=== PATIENT | female | born 1965 | race Caucasian/White ===

== ENCOUNTER 2018-08-08 08:00 | Day surgery (SDC) | payer OTHER ==
[2018-08-07 15:23] VITALS: BMI 22.1
[2018-08-08] MEDS ORDERED: ONDANSETRON 4 MG/2 ML VIAL IVPUSH PRN (09:47)
[2018-08-08] MEDS ORDERED: oxyCODONE HCL 5 MG TABLET PO PRN ×2 (09:47)
[2018-08-08] MEDS ORDERED: LACTATED RINGERS SOLUTION 1,000 ML IV SCH (10:00)
[2018-08-08] MEDS ORDERED: ceFAZolin SODIUM 1 GM VIAL ONE ×2 (10:15→10:45)
[2018-08-08] MEDS ORDERED: GENTAMICIN SO4 80 MG/2 ML VIAL ONE (10:15)
[2018-08-08] MEDS ORDERED: MIDAZOLAM HCL 2 MG/2 ML SINGLE DOSE VIAL ONE (10:16)
[2018-08-08] MEDS ORDERED: PROPOFOL 20 ML ONE ×2 (10:16→12:43)
[2018-08-08] MEDS ORDERED: ceFAZolin SODIUM 1 GM VIAL IVPB ONE (10:38)
[2018-08-08] MEDS ORDERED: SODIUM CHLORIDE 0.9% P/F 10 ML VIAL IJ ONE (10:45)
[2018-08-08] MEDS ORDERED: KETOROLAC TROMETHAMINE 30 MG/1 ML VIAL ONE (10:45)
[2018-08-08] MEDS ORDERED: LIDOCAINE HCL/PF 2% SDV 5ML VIAL ONE (10:45)
[2018-08-08] MEDS ORDERED: ePHEDrine SULFATE 50 MG/1 ML AMPULE ONE (10:53)
[2018-08-08] MEDS ORDERED: LIDOCAINE 1%/EPI 1:100000 (50 ML MULTI DOSE VIAL) NR ONE (10:58)
[2018-08-08] MEDS ORDERED: BUPIVACAINE LIPOSOME/PF (EXPAREL) 266 MG/20 ML VIAL ONE (11:25)
[2018-08-08] MEDS ORDERED: BUPIVACAINE LIPOSOME/PF (EXPAREL) 266 MG/20 ML VIAL NR ONE (11:30)
[2018-08-08] MEDS ORDERED: ACETAMINOPHEN 1000 MG/100 ML VIAL (NON FORMULARY) IVPB ONE ×2 (11:38→13:42)
[2018-08-08] MEDS ORDERED: GLYCOPYRROLATE 0.2 MG/1 ML VIAL ONE (12:30)
--- NOTE | 2018-08-08 13:18 | OP ---
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 Ruptured breast implant right Operation: Bilateral breast reconstruction with other technique,Bilateral subcutaneous tissue. Bilateral capsulectomy removal and replacement of both implants Findings: Ruptured right breast implant Upper pole tear Implants: Bilateral silicone breast Surgeon: Mario Dee Anesthesia: General Specimens Removed: Bilateral implants. Bilateral capsules Estimated Blood Loss (mls): 20
[2018-08-08] MEDS ORDERED: ACETAMINOPHEN INJECTION 100 ML IVPB ONE (13:39)
[2018-08-08 15:39] VITALS: BP 103/65; PULSE 85; TEMP 98.3
--- NOTE | 2018-08-11 08:43 | OP ---
DATE OF OPERATION: 08/08/2018 SURGEON: Larry Dee MD PREOPERATIVE DIAGNOSES: 1. Bilateral acquired chest wall deformity status post bilateral mastectomy. 2. Mechanical complication of bilateral breast reconstruction. 3. Ruptured breast implant per Radiology. POSTOPERATIVE DIAGNOSES: 1. Bilateral acquired chest wall deformity status post bilateral mastectomy. 2. Mechanical complication of bilateral breast reconstruction. 3. Ruptured breast implant per Radiology. OPERATIVE PROCEDURE: 1. Right breast reconstruction utilizing other technique. 2. Left breast reconstruction utilizing other technique. 3. Right breast capsulectomy, removal of ruptured breast implant and replacement. 3. Left breast capsulectomy, removal of implant and replacement. OPERATIVE INDICATION: The patient is a 53-year-old female who underwent bilateral mastectomy for breast cancer approximately 10 or 11 years ago. The patient now presents with bilateral capsular contracture and rupture of breast implant. The implants are malpositioned in a superior position and are firm with acquired chest wall deformity post mastectomy for cancer. The risks and benefits of surgical versus nonsurgical alternatives as well as the material complications of the procedure were described to the patient on multiple occasions preoperatively including today in the holding area where she was marked in the standing position with outline of the incisions for reconstruction with other technique and implant replacement. The patient presented with a large defect in the lower pole of each breast and required reconstructive procedures as above. PROCEDURE IN DETAIL: The patient was taken to the operating room, and after induction of general anesthesia in the supine position, both arms were extended and padded. Venodyne boots were placed. The entire chest wall, abdomen, flank area was prepped with ChloraPrep solution over the entire extent as usual for breast reconstruction. At this point, after placement of sterile drapes and time-out, attention was turned to the mastectomy scars. The patient had previous circumareolar, vertical, and inframammary incisions and scars. The lower incision was then injected with 1% local lidocaine anesthesia with 1:100,000 epinephrine as well as the area in the lower abdomen for harvest of reconstructed tissue on the flank. At this point, after allowing topical anesthesia and hemostasis, an incision was made in the left inframammary fold down through the skin into the subcutaneous tissue through the subcutaneous tissue using the electrocautery and optical magnification of 2.5 power. The capsule was then encountered and then opened. The left breast implant, which was a textured Sientra Smooth Round base 450-mL volume implant, was then removed and sent for pathologic diagnosis. Because of the textured device, the capsulectomy was performed. The capsule was then removed on the inferior pole, and all aspects of the capsule, which were visualized in this area were also removed and sent for pathologic diagnosis. At this point, copious irrigation of the wound was performed throughout the pocket with triple antibiotic solution as well as saline approximately 500 mL volume. The implant was then replaced with a slightly smaller implant as per the patient's desire. A Sientra style 107 High Profile Round Smooth silicone gel implant of 385 mL volume was placed into the left breast pocket. At this point, attention was turned to the lower abdominal incisions. These were made down through the skin to the subcutaneous tissues, through the subcutaneous tissue, down to the underlying external oblique fascia. Tissue was then harvested from the lateral portions of both flanks in the usual fashion for reconstructive procedure with other technique and then the tissue was transferred to the back table and prepared for reconstruction. This tissue was then transferred to the left breast in the superior, medial, central, and inferior portions of the left breast as well as the lower area below the incision on the abdominal area. Once this was accomplished, the wound was closed using 2-0 Vicryl sutures on the deep tissue and deep fascia, 3-0 PDS in a deep dermal fashion, and a running subcuticular suture with 3-0 V-Lock was placed into the skin. Once this breast was closed, attention was turned to the opposite right breast. Because of the previous diagnosis of ruptured implant, which the patient reported she felt a year ago, all wounds were protected for this area. Incision was then made using optical magnification of 2.5 powered down through the mastectomy scar through the subcutaneous tissue and down to the capsule itself. Upon opening the capsule, the implant appeared to be ruptured. Silicone was present on the external surface of the implant itself, and upon removal of the implant, a large tear in the upper pole of the implant was seen, which had been previously made by patient activity. This implant was removed. Photo was taken and sent for pathologic diagnosis. This also was a Sientra round base textured device, and because of that, a capsulectomy was performed. The capsule was then excised and sent for pathologic diagnosis, and open capsulotomy was performed superiorly to accept the new implant. At this point, the same inpatient was placed back into the pocket after aching hemostasis throughout the pocket in meticulous fashion. Copious irrigation of the wound with saline cleansing solution in order to remove all silicone, which was wiped from the pocket itself and capsule itself. After cleansing the pocket, the new implant was placed. The same Sientra 385-mL volume High Profile Smooth Round implant was placed into the right breast pocket and then similar closure was accomplished with 2-0 Vicryl suture, 3-0 PDS in the deep dermis, and a subcuticular suture. The same volume of tissue for reconstruction was transferred to the right breast superiorly, medially, and inferiorly to fill out the lower pole of the breast because of the mastectomy defect. All wounds were dressed sterilely with Dermabond, Steri-Strips, and a compressive dressing. She tolerated the procedure well. She was injected with Exparel dilute solution at the end of the procedure into the deep musculature in all areas for comfort and anesthesia. She was extubated and transferred to the recovery room in satisfactory condition in a surgery bra and tolerated the procedure well. LARRY DEE M.D. [id number]
--- NOTE | 2018-08-12 15:14 | PATH ---
Surgical Pathology Report Patient Name: OSWALDO URENA [facility]. Rec. #: [id number] /Age/Gender: 1965 (Age: 53) / F Account: [id number] Location: [facility] SUR[facility] Taken: 08/08/2018 Received: 08/11/2018 Reported: 08/12/2018 Physicians: Mario Dee Specimen(s) Received A: LEFT BREAST CAPSULE B: RIGHT BREAST CAPSULE C: LEFT BREAST IMPLANT D: RIGHT BREAST IMPLANT Clinical History Breast cancer Final Diagnosis A. BREAST CAPSULE, LEFT, EXCISION: BENIGN DENSE FIBROUS TISSUE CONSISTENT WITH BREAST CAPSULE, FIBROADIPOSE TISSUE, AND SCANT SKELETAL MUSCLE. B. BREAST CAPSULE, RIGHT, EXCISION: BENIGN DENSE FIBROUS TISSUE CONSISTENT WITH BREAST CAPSULE AND FIBROADIPOSE TISSUE WITH MILD CHRONIC INFLAMMATION AND REACTIVE CHANGES. C. BREAST IMPLANT, LEFT, REMOVAL: BREAST IMPLANT. MACROSCOPIC DIAGNOSIS. D. BREAST IMPLANT, RIGHT, REMOVAL: BREAST IMPLANT. MACROSCOPIC DIAGNOSIS. Electronically Signed Maxine Rowell M.D. Gross Description A. Received in formalin labeled "left breast capsule," is a 6.3 x 4.3 x 0.5 cm aggregate of cabral, firm portions of fibrous tissue, consistent with portions of a fibrous capsule. Sectioning reveals focal thickened areas. No discrete masses are identified. [place] sections are submitted in one cassette. B. Received in formalin labeled "right breast capsule," is a 6.8 x 4.3 x 0.5 cm aggregate of multiple cabral, irregular portion of firm fibrous capsule. No discrete masses are identified. [place] sections are submitted in one cassette. C. Received fresh labeled "left breast implant," is a 13 cm in diameter x 3.5 cm in depth cabral, rubbery, intact breast implant. No soft tissue is present. No sections are submitted, gross only. D. Received fresh labeled "right breast implant," is a 13 cm in diameter x 4 cm in depth cabral, rubbery, focally disrupted breast implant. There is silicon material leaking out of the breast implant and into the container. No soft tissue is present. No sections are submitted, gross only. DL/08/11/2018 saudi08/11/2018
== END 2018-08-08 15:48 | disposition home or self-care (01) ==
LOC: JASU-SURG 08:00
PROVIDERS: ATTEND Plastic Surgery
PROC: 0HWT0JZ Revision of Synthetic Substitute in Right Breast, Open Approach (ICD-10-PCS; 2018-08-08)
PROC: 0HWU0JZ Revision of Synthetic Substitute in Left Breast, Open Approach (ICD-10-PCS; principal; 2018-08-08 09:30)
DX: T85.898A Other specified complication of other internal prosthetic devices, implants and grafts, initial encounter (principal); M95.4 Acquired deformity of chest and rib; Z90.13 Acquired absence of bilateral breasts and nipples
CPT/HCPCS: 88300-TC; 88304-TC; 94760; J0131

== ENCOUNTER 2018-08-08 18:29 | Emergency (ER) | payer OTHER ==
--- NOTE | 2018-08-08 18:35 | PDOC ---
Rapid Medical Evaluation Time Seen by Provider: 08/08/18 18:33 Medical Evaluation: Allergies Allergy/AdvReac Type Severity Reaction Status Date / Time Penicillins Allergy Rash Verified 08/08/18 08:36 Sulfa (Sulfonamide Allergy Verified 08/08/18 08:36 Antibiotics) 08/08/18 18:33 I have performed a brief in-person evaluation of this patient. The patient presents with a chief complaint of:POD #0 B breast implant exchange from prior rupture hx of breast Ca bleeding through surgical bandage Pertinent physical exam findings: scant blood on post op bra I have ordered the following:nothing The patient will proceed to the ED for further evaluation. Discharge Disposition - Diagnosis Bleeding from breast - Referrals - Patient Instructions - Post Discharge Activity
[2018-08-08 19:04] VITALS: BMI 22.1
--- NOTE | 2018-08-08 19:25 | PDOC ---
Attending Attestation - HPI HPI: 08/08/18 21:02 "The patient is a 53-year-old female with past medical history significant for Breast CA s/p B/L mastectomy (by Dr. Dee), with reconstruction complicated by rupture of the right breast implant, s/p B/L breast reconstruction with b/l subcutaneous tissue, capsulectomy removal and replacement of both implants (by Dr. Dee) presents to the emergency department with L. breast pain with swelling. The patient reports she underwent surgery from 10:45 to 1-1:30 pm today and was discharged at 3:30. The patient states about an hour after discharge she noticed clear fluid discharge from the L. breast associated with swelling and pain. The patient denies bloody discharge or taking any pain medication. The patient residents in [place] and came up for the surgery and is leaving on Saturday. Allergies: Sulfa and penicillin Plastic Surgeon: Dr. Dee. " - Medical Decision Making 08/08/18 21:03 Documentation prepared by Candace Parnell, acting as medical assembly for Rogers Lomeli MD. <Candace Parnell - Last Filed: 08/08/18 21:01> - Resident Resident Name: Cintia Pennington - ED Attending Attestation I have performed the following: I have examined & evaluated the patient, The case was reviewed & discussed with the resident, I agree w/resident's findings & plan, Exceptions are as noted - Physicial Exam PE: 08/08/18 19:32 GENERAL: The patient is awake, alert, and fully oriented, Nontoxic - in no acute distress. CHEST: Swelling/ecchymosis on inferior aspect of breast, L breast is ~50% larger than the left and tense to touch, no acitve bleeding, moderately ttp - Medical Decision Making 08/08/18 19:21 53y F hx of breast ca sp mastetctomy cb ruptured implant, sp revision surgery today notes increased swelling and pain from the left breast after the surgery today. 08/08/18 19:33 ddx - post op swelling vs hematoma will dw dr. garcia will give percocet for pain 08/08/18 21:[address] garcia by dr. pennington also sent images to surgeon via text with permission of patient at resquest of surgeon feels tihs is not a hemaotma and likely post op swelling continue supportive care at home with fu retur nprecautions were discussed <Rogers Lomeli - Last Filed: 08/08/18 21:23>
--- NOTE | 2018-08-08 19:46 | PDOC ---
History of Present Illness - General Chief Complaint: Pain Stated Complaint: , BLEEDING, PAIN IN R ARM Time Seen by Provider: 08/08/18 18:33 - History of Present Illness Initial Comments: Juhi Alcazar is a 53yo woman who presents with increasing right breast pain and swelling POD#0 s/p bilateral breast implant replacement and repair of a ruptured R implant. Ms Alcazar states that she had surgery earlier today and left the hospital around 3pm. Approximately 2-3 hours later, she noted significantly increased pain and swelling in the R breast only. She states that the pain is constant, throbbing, and non-radiating. Movement or directly touching the breast, especially on the lower lateral breast, increases the pain. She also had some bright red bleeding from the incision on the inferior R breast that stained the gauze dressing and surgical bra. She attempted to contact her surgeon, Dr Dee, and presented to the ED when she could not reach him. Ms Alcazar states that she has not yet taken any pain medication. As she had very little pain when leaving the hospital , she did not pecan picker the prescription of Percocet that was prescribed. She states that her current pain is significantly more severe that for her initial breast reconstruction. Per the post-op note, the right breast procedure was more involved than the left , with removal of the ruptured implant and capsule contracture. Past History - Past Medical History Allergies/Adverse Reactions: Allergies Allergy/AdvReac Type Severity Reaction Status Date / Time Penicillins Allergy Rash Verified 08/08/18 08:36 Sulfa (Sulfonamide Allergy Verified 08/08/18 08:36 Antibiotics) Home Medications: Ambulatory Orders Dextroamphetamine/Amphetamine [Adderall 10 mg Tablet] 10 mg PO PRN PRN 08/07/18 Escitalopram Oxalate [Lexapro -] 30 mg PO DAILY 08/07/18 Anemia: Yes (1 yr ago) Asthma: No Cancer: Yes (Melanoma Both Feet-mohs procedure 2009; breast) Cardiac Disorders: Yes (Murmur as a child) CVA: No COPD: No CHF: No Dementia: No Diabetes: No GI Disorders: Yes (Spastic Colon) Disorders: No HTN: No Hypercholesterolemia: No Liver Disease: No Seizures: No Thyroid Disease: No - Surgical History Abdominal Surgery: No Appendectomy: No Cardiac Surgery: No Cholecystectomy: No Lung Surgery: No (breast reduction) Neurologic Surgery: No Orthopedic Surgery: No - Suicide/Smoking/Psychosocial Hx Smoking History: Unknown if ever smoked Have you smoked in the past 12 months: Yes If you are a former smoker, when did you quit?: 11 yrs ago 'Breaking Loose' booklet given: 03/26/12 Hx Alcohol Use: Yes (every other day-a few beers) Drug/Substance Use Hx: No Substance Use Type: Alcohol Hx Substance Use Treatment: No Review of Systems - Review of Systems Comments:: General: No fevers, no chills, no weight or appetite change, no malaise HEENT: No changes in vision, no changes in hearing, no congestion, no sore throat CV: No chest pain, no palpitations, no LE edema Pulm: No SOB, no cough, no wheezing GI: No nausea or vomiting, no change in bowel habits, no melena : No frequency, no urgency, no dysuria Musc: No back pain, no joint swelling, no recent injury Skin: No rash, no lesions, no erythema. See HPI, post-op pain and swelling in R breast Endo: No excessive thirst, no heat/cold intolerance Heme: No unusual bruising or bleeding, no swollen glands Neuro: No syncope, no numbness/tingling, no focal weakness Vasc: No claudication Psych: No recent change in mood, no SI or HI *Physical Exam - Vital Signs Last Vital Signs Temp Pulse Resp BP Pulse Ox 98.2 F 92 H 18 110/70 96 08/08/18 18:46 08/08/18 18:46 08/08/18 18:46 08/08/18 18:46 08/08/18 18:46 - Physical Exam Comments: General: Comfortable, no acute distress HEENT: PERRL, EOMI, MMM, voice normal, normal neck ROM Cards: RRR Pulm: Comfortable on room air Breast: s/p b/l breast implantation. L breast w/ minimal swelling, steri strips in place Abd: Soft, nontender, nondistended Ext: No LE edema, FARTUN hose in place. ROM intact. Strength equal bilaterally Vasc: Extremities WWP Skin: Normal color, no rashes or lesions Neuro: A&Ox3, CN grossly intact, normal speech, motor/sensory grossly intact and symmetric Psych: Upset, anxious Moderate Sedation - Procedure Monitoring Vital Signs: Procedure Monitoring Vital Signs Temperature 98.2 F 08/08/18 18:46 Pulse Rate 92 H 08/08/18 18:46 Respiratory Rate 18 08/08/18 18:46 Blood Pressure 110/70 08/08/18 18:46 O2 Sat by Pulse Oximetry (%) 96 08/08/18 18:46 ED Treatment Course - Medications Given in the ED: ED Medications Discontinued Medications Generic Name Dose Route Start Last Admin Trade Name Freq PRN Reason Stop Dose Admin Oxycodone/Acetaminophen 2 combo 08/08/18 19:21 08/08/18 19:38 Percocet 5/325 - PO 08/08/18 19:22 2 combo ONCE ONE Administration Medical Decision Making - Medical Decision Making 08/08/18 19:51 Juhi Alcazar is a 53yo woman POD #0 s/p b/l breast implant replacement and repair of R implant rupture w/ capsule contracture. - L breast w/ minimal pain, swelling, no concerns - R breast w/ moderate swelling, TTP along inferior lateral aspect. Scant bright red blood on gauze over incision. Call placed to Dr Dee - Oxycodone/acetaminophen given for pain - Clean gauze placed over incision, post-op bra replaced 08/08/18 20:08 - Spoke to Dr Robyn Anthony, covering plastic surgeon. Requested pictures to be sent , will be forwarded to Dr Dee. - Obtained verbal consent from Ms Alcazar to obtain pictures. Sent to Dr Anthony - Increased bruising compared to when Ms Alcazar first arrived in the ED, likely small hematoma forming 08/08/18 21:23 - Spoke to Dr Dee by phone. He had been able to see the pictures sent to Dr Anthony, and he feels that the swelling and bruising is to be expected after the surgery as the R breast procedure was more involved and had much more manipulation than the L breast. He spoke to Ms Alcazar's daughter and will contact them tomorrow as well - Reiterated post-op expectations with Ms Alcazar and her daughter. They understand and agree, and both feel comfortable going home at this time. Discussed with Dr Lomeli. Cintia Pennington PGY1 *DC/Admit/Observation/Transfer Diagnosis at time of Disposition: Post-op pain - Discharge Dispostion Disposition: HOME Condition at time of disposition: Stable Decision to Admit order: No - Referrals Referrals: Mario Dee MD [Staff Physician] - - Patient Instructions Printed Discharge Instructions: DI for Postoperative Pain Additional Instructions: Discharge Instructions: You were seen in the emergency department for post-operative pain, swelling, and bleeding. Your surgeon, Dr Dee, was contacted and sent pictures to evaluate your surgical site. Your pain and swelling are an expected consequence of surgery and are due to a more extensive procedure on the right compared to the left. Home Care: - Make sure you pecan picker your prescription of pain medication, Percocet. This may be taken every 4-6 hours as needed for pain. Consider taking pain medication before bed for the next day or two. You may also wish to take some when you wake up, but be aware that narcotic medications are likely to make you sleepy. Do not drive. - Percocet contains acetaminophen (Tylenol). Do not take additional acetaminophen while using this medication. - You may wish to ask your surgeon if you can take ibuprofen (Motrin or Advil) 600mg every 6 hours. If he agrees, this can be taken alternatively with the Percocet so that you can take medication every 3-4 hours for continued pain. - Keep your surgical bra in place. Compression will help minimize swelling and additional pain - Some pain, swelling, and bruising is expected after surgery. You may also have some continued drainage on the gauze dressing and bra. This can be bloody in appearance to pink (like fruit punch). If you have significant bleeding that continues to soak through gauze, you should seek medical care, but a small amount of drainage is normal. - If you have significantly worsening pain that cannot be controlled by medication, significant continued bleeding, worsening redness around the incision, or fevers to 101F along with any of these symptoms, please seek medical care. Follow Up: - You should be contacted by Dr Dee tomorrow. - Make an appointment to see a plastic surgeon near your home within the next week for follow up. - Seek immediate medical care if you have any uncontrolled pain, continued bleeding, redness, fevers to 101F, or thick yellow drainage as these can be signs of infection. - Post Discharge Activity
[2018-08-08 21:56] VITALS: BP 122/71; PULSE 77; TEMP 97.9
== END 2018-08-08 21:57 | disposition home or self-care (01) ==
LOC: JER 18:29
DX: G89.18 Other acute postprocedural pain (principal); N64.4 Mastodynia; Z86.2 Personal history of diseases of the blood and blood-forming organs and certain disorders involving the immune mechanism; Z85.820 Personal history of malignant melanoma of skin; Z85.3 Personal history of malignant neoplasm of breast; Z90.13 Acquired absence of bilateral breasts and nipples
CPT/HCPCS: 99282-25